=== PATIENT | female | born 1975 | race Caucasian/White ===

== ENCOUNTER → 2017-03-18 | Outpatient (CLI) | payer BC | LOC: COL.RAD 08:20 | DX: R68.81 Early satiety (principal) | CPT/HCPCS: A9541 ==

== ENCOUNTER → 2017-03-21 | Outpatient (CLI) | payer BC | LOC: COL.RAD 03-18 08:02 | DX: R14.0 Abdominal distension (gaseous) (principal); R68.81 Early satiety ==